=== PATIENT | male | born 1970 | race Caucasian/White ===

== ENCOUNTER 2019-11-21 02:17 | Emergency (ER) | payer OTHER, MEDICAID ==
[~2019-11-21] VITALS: Ht 182.9 cm; Wt 91.0 kg
[2019-11-21] MEDS ORDERED: LORAZEPAM 1MG TABLET PO ONE (03:00)
[2019-11-21 03:15] LABS: BASOPHILS % 0.4 % (0.0-2.0); EOSINOPHILS % 0.1 % (0.0-5.0); HEMATOCRIT. 46.7 % (42.0-52.0); HEMOGLOBIN. 15.7 g/dL (14.0-18.0); LYMPHOCYTES % 8.9 % (20.0-50.0); MEAN CORPUSCULAR HEMOGLOBIN 31.5 pg (28.0-32.0); MEAN CORPUSCULAR VOLUME 93.5 fL (80.0-94.0); MEAN PLATELET VOLUME 8.8 fl (7.4-10.4); MONOCYTES % 4.8 % (2.0-8.0); NEUTROPHILS % 85.8 % (40.0-76.0); PLATELET 287 x1000/uL (130-400); RED BLOOD CELL COUNT 4.99 mill/uL (4.7-6.1); RED CELL DISTRIBUTION WIDTH 13.8 % (11.6-14.6)
[2019-11-21 03:22] LABS: CHLORIDE 108 mEq/L (98-107)
[2019-11-21 03:26] LABS: ETHANOL BLOOD < 10 mg/dL
[2019-11-21 03:31] LABS: CREATINE KINASE 340 IU/L (39-308)
[2019-11-21] MEDS ORDERED: IBUPROFEN 600MG TABLET PO STA (03:55)
[2019-11-21] MEDS ORDERED: SODIUM CHLORIDE 0.9% 1,000 ML IV ONE (04:02)
[2019-11-21] MEDS ORDERED: ZIPRASIDONE HCL 40MG CAPSULE PO ONE (13:30)
[2019-11-21] MEDS ORDERED: ZIPRASIDONE HCL 20MG CAPSULE PO NR (14:15)
[2019-11-22 00:40] LABS: CLARITY URINE CLEAR (CLEAR); COLOR URINE YELLOW (YELLOW); KETONES URINE NEGATIVE (NEGATIVE); LEUKOCYTE ESTERASE URINE NEGATIVE (NEGATIVE); NITRITE URINE NEGATIVE (NEGATIVE); OCCULT BLOOD URINE NEGATIVE (NEGATIVE); PROTEIN URINE NEGATIVE (NEGATIVE); SPECIFIC GRAVITY URINE 1.007 (1.005-1.030); UROBILINOGEN URINE 0.2 E.U./dL (0.2-1.0)
[2019-11-22 00:50] LABS: *AMPHETAMINES SCREEN URINE NEGATIVE (NEGATIVE)
[2019-11-22 00:51] LABS: *BARBITURATES SCREEN URINE NEGATIVE (NEGATIVE); *BENZODIAZEPINES SCREEN URINE NEGATIVE (NEGATIVE); *COCAINE SCREEN URINE NEGATIVE (NEGATIVE); CANNABINOID URINE SCREEN PRESUMTIVE POSITIVE (NEGATIVE); METHADONE URINE SCREEN NEGATIVE (NEGATIVE); OPIATES URINE SCREEN NEGATIVE (NEGATIVE); PHENCYCLIDINE URINE SCREEN NEGATIVE (NEGATIVE)
[2019-11-22 13:32] LABS: CLARITY URINE CLEAR (CLEAR); KETONES URINE NEGATIVE (NEGATIVE); LEUKOCYTE ESTERASE URINE NEGATIVE (NEGATIVE); NITRITE URINE NEGATIVE (NEGATIVE); OCCULT BLOOD URINE NEGATIVE (NEGATIVE); PROTEIN URINE NEGATIVE (NEGATIVE); SPECIFIC GRAVITY URINE 1.002 (1.005-1.030); UROBILINOGEN URINE 0.2 E.U./dL (0.2-1.0)
[2019-11-22 13:34] LABS: COLOR URINE STRAW (YELLOW)
[2019-11-22] MEDS ORDERED: ZIPRASIDONE HCL 80MG CAPSULE PO ONE (17:15)
[2019-11-22] MEDS ORDERED: ZIPRASIDONE HCL 40MG CAPSULE PO NR (17:30)
[2019-11-24] MEDS ORDERED: OLANZAPINE 10MG TABLET PO SCH ×2 (09:00)
[2019-11-24] MEDS ORDERED: LORAZEPAM 1MG TABLET PO SCH ×2 (09:00)
[2019-11-24] MEDS ORDERED: DIPHENHYDRAMINE 50MG/ML VIAL IM ONE (16:30)
[2019-11-24] MEDS ORDERED: LORAZEPAM 2MG/ML CPJ IM ONE (16:30)
[2019-11-24 17:14] LABS: BASOPHILS % 0.7 % (0.0-2.0); EOSINOPHILS % 3.5 % (0.0-5.0); HEMATOCRIT. 51.9 % (42.0-52.0); HEMOGLOBIN. 17.6 g/dL (14.0-18.0); LYMPHOCYTES % 34.8 % (20.0-50.0); MEAN CORPUSCULAR HEMOGLOBIN 31.8 pg (28.0-32.0); MEAN CORPUSCULAR VOLUME 93.8 fL (80.0-94.0); MEAN PLATELET VOLUME 8.7 fl (7.4-10.4); MONOCYTES % 6.8 % (2.0-8.0); NEUTROPHILS % 54.2 % (40.0-76.0); PLATELET 322 x1000/uL (130-400); RED BLOOD CELL COUNT 5.53 mill/uL (4.7-6.1); RED CELL DISTRIBUTION WIDTH 13.4 % (11.6-14.6)
[2019-11-24 17:25] LABS: CREATINE KINASE 124 IU/L (39-308)
[2019-11-24 20:14] VITALS: BP 110/64
== END 2019-11-24 20:38 | disposition home or self-care (01) ==
LOC: ER 02:17
DX: F91.8 Other conduct disorders (principal); S69.81XA Other specified injuries of right wrist, hand and finger(s), initial encounter; R45.851 Suicidal ideations; M60.9 Myositis, unspecified; F22 Delusional disorders; R26.9 Unspecified abnormalities of gait and mobility; Z75.1 Person awaiting admission to adequate facility elsewhere; X58.XXXA Exposure to other specified factors, initial encounter; Y93.89 Activity, other specified; Y92.89 Other specified places as the place of occurrence of the external cause
CPT/HCPCS: 36415; 71045; 73130; 80053; 80320; 82550; 85025; 87635; 93970; 99285; J1200; J2060; J7030; G0480